=== PATIENT | female | born 1930 | race Caucasian/White ===

== ENCOUNTER 2017-03-29 17:44 | Inpatient (IN) | payer OTHER ==
[~2017-03-29] VITALS: Ht 152.4 cm; Wt 75.7 kg
[~2017-03-29 17:44] MED LIST: ACETAMINOPHEN325 M1 PO; ACIDOPHILUS-PE1 EACH PO; ACTOS15 MG PO; ACTOS30 MG PO; ADVAIR HFA120 INHALA IH; ALEVE220 MG PO; ARICEPT10 MG PO; ARTHRITIS PAIN650 M2 PO; ASPIRIN81 M1 PO; ATORVASTATIN CA40 MG PO; BENGAY ULTRA S1 EACH TP; CALCITONIN-SAL3.8 ML ALT NARES; CALCIUM + D SO1 EACH PO; CALCIUM 500 MG1 EACH PO; CHOLESTROL MED; DAILY VITAMIN1 EAC8 PO; DIABETA,MICRONAS5 MG PO; DIABETIC T100 MG/5 M PO; DIABETIC TUSSI118 ML PO; DUONEB 2.5-0.5 M3 ML IH; Diabeta,Micronase PO; ESCITALOPRAM OX20 MG PO; FORTICAL3.7 ML ALT NARES; FUROSEMIDE20 MG PO; GLUCOPHAGE1000 MG PO; LEVEMIR FL100 UNIT/1 SC; LEXAPRO20 MG PO; LIPITOR40 MG PO; LO-DOSE ASPIRIN81 M1 PO; Lasix PO; Lofibra,Triglide PO; METFORMIN HCL1000 MG PO; METOPROLOL SUCC25 MG PO; METOPROLOL TART25 MG PO; MULTIPLE VITAM1 EACH PO; NOVOLOG PE100 UNITS/ SC; OS-CAL 500+D T1 EAC1 PO; OYSTER SHELL C1 EACH PO; PHENADOZ25 MG PR; PREDNISONE PO; PREDNISONE20 MG PO; PREVALITE PACKET4 GM PO; PRILOSEC20 MG PO; PROTONIX40 MG PO; ST. JOSEPH ASPI81 MG PO; STOOL SOFTENER100 M1 PO; TUMS DUAL ACTI1 EACH PO; TYLENOL ARTHRI650 MG PO; VENTOLIN HFA18 GM IH
[2017-03-29 19:02] LABS: HEMATOCRIT 41.7 % (36.0-46.0); MCH 30.7 PG (29.0-34.0); MCHC 32.9 G/DL (30.0-36.0); MCV 93.5 FL (83-99); MEAN PLAT.VOLUME 9.6 uM^3 (9.5-12.4); PLATELET COUNT 204 K/uL (156-360); RBC DIS.WIDTH-CV 14.5 % (11.8-14.6); RBC DIS.WIDTH-SD 49.9 % (39-53); RED BLOOD COUNT 4.46 M/uL (3.80-5.20)
[2017-03-29 19:04] LABS: WHITE BLOOD COUNT 15.6 K/uL (4.1-10.2)
[2017-03-29 19:09] LABS: POINT-OF-CARE METER ID UU13113702
[2017-03-29 19:14] LABS: CHLORIDE 103 mEq/L (99-109); INTER. NORMALIZED RATIO 1.1; POTASSIUM 4.2 mEq/L (3.7-5.4); PROTHROMBIN TIME 10.7 (9.2-11.2); SODIUM 138 mEq/L (136-147)
[2017-03-29 19:16] LABS: GLUCOSE 79 mg/dL (70-99)
[2017-03-29 19:18] LABS: ANION GAP 6 MEQ/L (2-14); TOTAL BILIRUBIN 0.3 mg/dL (0.0-1.0)
[2017-03-29 19:20] LABS: ALKALINE PHOSPHATASE 60 IU/L (3-129); GFR ESTIMATE (CALCULATED) > 59 mL/min/
[2017-03-29 19:21] LABS: UREA NITROGEN (BUN) 15 mg/dL (9-23)
[2017-03-29 21:09] LABS: POINT-OF-CARE METER ID UU13113702
[2017-03-30] MEDS ORDERED: TYLENOL REGULA325 MG PO (00:25)
[2017-03-30] MEDS ORDERED: METAMUCIL FIBE1 EACH PO (00:26)
[2017-03-30] MEDS ORDERED: LEVEMIR FL100 UNIT/1 SC (00:27)
[2017-03-30] MEDS ORDERED: K-DUR10 MEQ PO (00:28)
[2017-03-30] MEDS ORDERED: VALSARTAN160 MG PO (00:28)
[2017-03-30] MEDS ORDERED: LASIX40 MG PO (00:29)
[2017-03-30] MEDS ORDERED: AMLODIPINE BESYL5 MG PO (00:30)
[2017-03-30] MEDS ORDERED: ESBRIET267 MG PO (00:32)
[2017-03-30] MEDS ORDERED: ARICEPT10 MG PO (00:33)
[2017-03-30] MEDS ORDERED: ICY HOT1 EAC1 TP (00:34)
[2017-03-30 04:02] VITALS: BP 139/73
[2017-03-30 06:31] LABS: POINT-OF-CARE METER ID UU14188577
[2017-03-30 08:03] VITALS: BP 137/65
[2017-03-30 12:00] VITALS: BP 147/65
[2017-03-30 16:18] VITALS: BP 136/67
[2017-03-30 16:47] LABS: POINT-OF-CARE METER ID UU14188577
[2017-03-30 20:09] LABS: POINT-OF-CARE METER ID UU13113675
[2017-03-30 22:05] VITALS: BP 121/79
[2017-03-31] VITALS (7 sets, daily range): BP systolic 107–145; BP diastolic 57–609
[2017-03-31 06:04] LABS: METH RESISTANT S AUREUS PCR NEGATIVE (NEGATIVE)
[2017-03-31 06:05] LABS: PROBE CHECK PASS; SPECIMEN PROCESSING CONTROL PASS
[2017-03-31 07:02] LABS: MCV 96.9 FL (83-99)
[2017-03-31 07:42] LABS: ANION GAP 8 MEQ/L (2-14); CHLORIDE 102 MEQ/L (99-109); GFR ESTIMATE (CALCULATED) > 59 mL/min/; GLUCOSE 304 mg/dL (70-99); POTASSIUM 4.7 MEQ/L (3.7-5.4); SAMPLE HEMOLYSIS CHECK 0; SAMPLE ICTERIC CHECK 0; SAMPLE LIPEMIA CHECK 0; SODIUM 136 MEQ/L (136-147); UREA NITROGEN (BUN) 15 mg/dL (9-23)
[2017-03-31 12:21] LABS: POINT-OF-CARE METER ID UU14188577
[2017-03-31 21:50] LABS: POINT-OF-CARE METER ID UU14188577
[2017-04-01 03:37] VITALS: BP 129/61
[2017-04-01 06:53] LABS: POINT-OF-CARE METER ID UU14149397
[2017-04-01 07:51] LABS: HEMATOCRIT 31.1 % (36.0-46.0); MCV 95.7 FL (83-99)
[2017-04-01 08:13] VITALS: BP 132/66
[2017-04-01 12:02] LABS: POINT-OF-CARE METER ID UU14188577
[2017-04-01 12:06] VITALS: BP 120/56
[2017-04-01 15:57] VITALS: BP 114/56
[2017-04-01 16:40] LABS: POINT-OF-CARE METER ID UU14149397
[2017-04-01 23:46] VITALS: BP 122/58
[2017-04-02 07:29] LABS: EOSINOPHIL (%) 0 % (0-5); HEMATOCRIT 28.4 % (36.0-46.0); IMMATURE GRANULOCYTE (%) 1.2 % (0.0-0.7); IMMATURE GRANULOCYTE COUNT 0.2 K/uL; INSTRUMENT ABS NEUTROPHIL CT 10.7 K/uL; LYMPHOCYTE COUNT 1.6 K/uL (1.0-2.8); MCH 31.7 PG (29.0-34.0); MCHC 32.4 G/DL (30.0-36.0); MCV 97.9 FL (83-99); MEAN PLAT.VOLUME 10.8 uM^3 (9.5-12.4); MONOCYTE (%) 6.8 % (3-12); MONOCYTE COUNT 0.9 K/uL (0-0.8); NEUTROPHIL (%) 79.7 % (45-76); NEUTROPHIL COUNT 10.7 K/uL (1.8-6.4); PLATELET COUNT 154 K/uL (156-360); RBC DIS.WIDTH-CV 14.1 % (11.8-14.6); RBC DIS.WIDTH-SD 50.8 % (39-53); WHITE BLOOD COUNT 13.4 K/uL (4.1-10.2)
[2017-04-02 08:00] LABS: ANION GAP 7 MEQ/L (2-14); CHLORIDE 102 MEQ/L (99-109); GFR ESTIMATE (CALCULATED) > 59 mL/min/; GLUCOSE 209 mg/dL (70-99); POTASSIUM 4.4 MEQ/L (3.7-5.4); SAMPLE HEMOLYSIS CHECK 0; SAMPLE ICTERIC CHECK 0; SAMPLE LIPEMIA CHECK 0; SODIUM 135 MEQ/L (136-147)
[2017-04-02 08:02] LABS: UREA NITROGEN (BUN) 23 mg/dL (9-23)
[2017-04-02 08:30] VITALS: BP 125/74
[2017-04-02] MEDS ORDERED: DUONEB 2.5-0.5 M3 ML AEROSOL (13:14)
[2017-04-02] MEDS ORDERED: XARELTO10 MG PO (13:14)
[2017-04-02] MEDS ORDERED: VITAMIN D-32000 UNI2 PO (13:17)
[2017-04-02] MEDS ORDERED: THERAGRAN1 TABLET PO (13:18)
[2017-04-02] MEDS ORDERED: ENDOCET 5-3251 EACH PO (13:18)
== END 2017-04-02 15:10 | DRG 470 ==
LOC: EME 17:44 → EDOF 23:50 → 3EAST 23:50
PROVIDERS: Emergency Medicine; Internal Medicine; Orthopaedic Surgery Sports Medicine
PROC: 0SRS0JZ Replacement of Left Hip Joint, Femoral Surface with Synthetic Substitute, Open Approach (ICD-10-PCS; principal; 2017-03-29)
DX: S72.002A Fracture of unspecified part of neck of left femur, initial encounter for closed fracture (principal); M48.56XA Collapsed vertebra, not elsewhere classified, lumbar region, initial encounter for fracture; J84.10 Pulmonary fibrosis, unspecified; E11.9 Type 2 diabetes mellitus without complications; I10 Essential (primary) hypertension; G30.9 Alzheimer's disease, unspecified; F02.80 Dementia in other diseases classified elsewhere, unspecified severity, without behavioral disturbance, psychotic disturbance, mood disturbance, and anxiety; W19.XXXA Unspecified fall, initial encounter; Z96.642 Presence of left artificial hip joint
CPT/HCPCS: 71010; 72128; 72131; 72170; 73030; 73080; 73502; 74176; 80048; 80053; 81003; 82948; 85014; 85018; 85025; 85027; 85048; 85610; 85730; 86900; 86901; 87641; 93005; 94640; 94640 76; 94799; 97530 GP; 99281; 99285; J0131; J0690; J1170; J1650; J1815; J2175; J2270; J2405; J2920; J3010; J3480; J7042; J7512

== ENCOUNTER 2017-05-03 20:13 | Emergency (ER) | payer OTHER ==
[~2017-05-03] VITALS: Ht 147.3 cm; Wt 84.7 kg
[~2017-05-03 20:13] MED LIST changes: +AMLODIPINE BESYL5 MG PO; +DUONEB 2.5-0.5 M3 ML AEROSOL; +ENDOCET 5-3251 EACH PO; +ESBRIET267 MG PO; +ICY HOT1 EAC1 TP; +K-DUR10 MEQ PO; +LASIX40 MG PO; +METAMUCIL FIBE1 EACH PO; +THERAGRAN1 TABLET PO; +TYLENOL REGULA325 MG PO; +VALSARTAN160 MG PO; +VITAMIN D-32000 UNI2 PO; +XARELTO10 MG PO
[2017-05-03 21:27] LABS: HEMATOCRIT 36.4 % (36.0-46.0); MCH 29.9 PG (29.0-34.0); MCHC 31.6 G/DL (30.0-36.0); MCV 94.8 FL (83-99); MEAN PLAT.VOLUME 9.8 uM^3 (9.5-12.4); PLATELET COUNT 313 K/uL (156-360); RBC DIS.WIDTH-CV 15.2 % (11.8-14.6); RED BLOOD COUNT 3.84 M/uL (3.80-5.20); WHITE BLOOD COUNT 15.2 K/uL (4.1-10.2)
[2017-05-03 21:38] LABS: CHLORIDE 108 mEq/L (99-109); SODIUM 144 mEq/L (136-147)
[2017-05-03 21:39] LABS: GLUCOSE 285 mg/dL (70-99); INTER. NORMALIZED RATIO 1.3; PROTHROMBIN TIME 13.4 (9.2-11.2); PTT 27.8 (25-32)
[2017-05-03 21:41] LABS: ANION GAP 11 MEQ/L (2-14)
[2017-05-03 21:43] LABS: GFR ESTIMATE (CALCULATED) > 59 mL/min/
[2017-05-03 21:44] LABS: UREA NITROGEN (BUN) 23 mg/dL (9-23)
[2017-05-03 21:48] LABS: POTASSIUM 4.5 mEq/L (3.7-5.4)
[2017-05-03 21:49] LABS: TROP-I INTERPRETATION NEGATIVE; TROPONIN-I 0.03 ng/mL (0.0-0.30)
[2017-05-04 01:22] VITALS: BP 115/65
== END 2017-05-04 01:23 ==
LOC: EME 20:13
PROVIDERS: Emergency Medicine
DX: J69.0 Pneumonitis due to inhalation of food and vomit (principal); F03.90 Unspecified dementia, unspecified severity, without behavioral disturbance, psychotic disturbance, mood disturbance, and anxiety; R00.0 Tachycardia, unspecified; I10 Essential (primary) hypertension; E11.9 Type 2 diabetes mellitus without complications; Z79.4 Long term (current) use of insulin; Z88.0 Allergy status to penicillin; Z86.718 Personal history of other venous thrombosis and embolism
CPT/HCPCS: 71020; 80048; 84484; 85027; 85610; 85730; 93005; 99281; 99285; J7030

== ENCOUNTER → 2017-05-07 | Outpatient (CLI) | payer OTHER | LOC: RAD 14:01 | DX: R13.12 Dysphagia, oropharyngeal phase (principal) | CPT/HCPCS: 74230; 92611 GN; G8996 GN CL; G8997 GN CL; G8998 GN CL ==